=== PATIENT | female | born 1980 | race African-American/Black ===

== ENCOUNTER 2017-12-24 11:57 | Emergency (ER) | payer OTHER ==
[~2017-12-24] VITALS: Ht 180.3 cm; Wt 149.7 kg
[2017-12-24] MEDS ORDERED: CLONAZEPAM 0.50.5 M1 PO (12:13)
[2017-12-24] MEDS ORDERED: CELEXA10 MG PO (12:13)
[2017-12-24] MEDS ORDERED: SYNTHROID200 MCG PO (12:14)
[2017-12-24 12:27] LABS: ABSOLUTE BASOPHILS 0.1 thou/uL (0.0-0.2); ABSOLUTE EOSINOPHILS 0.2 thou/uL (0.0-0.7); ABSOLUTE LYMPHOCYTES 3.3 thou/uL (0.8-5.3); ABSOLUTE MONOCYTES 0.8 thou/uL (0.0-1.2); ABSOLUTE NEUTROPHILS 7.3 thou/uL (1.6-8.1); BASOPHILS 0.4 %; EOSINOPHILS 1.4 %; HEMATOCRIT 35.1 % (37.0-47.0); HEMOGLOBIN 11.2 gm/dL (12.0-15.0); LYMPHOCYTES 28.4 %; MCH 24.3 pg (26.0-34.0); MCHC 31.8 g/dL (28.0-37.0); MCV 76.4 fL (80.0-100.0); MONOCYTES 6.8 %; MPV 8.1 fl. (7.2-11.1); NUCLEATED RBCS 0 /100WBC; PLATELET COUNT* 391 thou/uL (150-400); RBC 4.59 mil/uL (4.20-5.00); RDW-CV 17.1 % (10.5-14.5); WBC 11.6 thou/uL (4.0-11.0)
[2017-12-24 12:36] LABS: CALCIUM 8.4 mg/dL (8.5-10.1); CREATININE 0.8 mg/dL (0.6-1.3); POTASSIUM 4.1 mmol/L (3.5-5.1)
[2017-12-24 12:41] LABS: ALBUMIN 3.4 g/dL (3.4-5.0); TOTAL BILIRUBIN 0.2 mg/dL (<0.1-1.0); TOTAL PROTEIN 7.6 g/dL (6.4-8.2)
[2017-12-24 13:29] LABS: URINE BILIRUBIN NEGATIVE (Negative); URINE BLOOD NEGATIVE (Negative); URINE CLARITY CLEAR; URINE COLOR YELLOW; URINE GLUCOSE-RANDOM NEGATIVE (Negative); URINE KETONES NEGATIVE (Negative); URINE LEUKOCYTES-REFLEX TRACE (Negative); URINE NITRITE-REFLEX NEGATIVE (Negative); URINE PROTEIN NEGATIVE (Negative); URINE UROBILINOGEN 0.2 E.U./dl (0.2-1.0)
[2017-12-24 13:38] LABS: CASTS None Seen /LPF (None Seen); CRYSTALS None Seen /LPF (None Seen); MUCUS None Seen strn/LPF (None Seen); SQUAMOUS 0-3 Few /LPF (0-3); URINE RBC 0-2 Rare /HPF (0-2); URINE WBC-REFLEX 0-5 Rare /HPF (0-5)
[2017-12-24] MEDS ORDERED: ANTIVERT25 MG PO (13:41)
[2017-12-24 13:52] VITALS: BP 158/88
--- NOTE | 2017-12-24 15:07 | EKG ---
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1980 Requested By: Arely Jackson Order Number: [id number] MD: Loki Diaz Measurements Intervals [place] Rate: 60 P: 10 MD: 164 QRS: -21 QRSD: 86 T: -16 QT: 419 QTc: 419 Interpretive Statements Sinus rhythm Left ventricular hypertrophy Inferior infarct, 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
== END 2017-12-24 13:53 | disposition home or self-care (01) ==
LOC: M.ERS 11:57
PROVIDERS: Nurse Practitioner Family
DX: R42 Dizziness and giddiness (principal); R55 Syncope and collapse; F41.9 Anxiety disorder, unspecified